=== PATIENT | female | born 1950 | race Caucasian/White ===

== ENCOUNTER → 2019-11-19 | Outpatient (CLI) | payer MEDICARE ==
--- NOTE | 2019-11-19 11:08 | CT ---
EXAMINATION TYPE: CT abdomen pelvis wo/w con DATE OF EXAM: 11/19/2019 HISTORY: Abnormal radiologic findings on imaging. Patient states kidney pain 2-[address] DLP: 1680mGycm Automated Exposure Control for Dose Reduction was Utilized. CONTRAST: CT scan of the abdomen and pelvis is performed without and with IV Contrast, patient injected with 10 0 ml mL of Isovue 300. COMPARISON: None at this institution. FINDINGS: LUNG BASES: Mild scattered linear scarring and/or atelectasis. LIVER/GB: Suspicious heterogeneous hypodense masses throughout the liver. Inferior right hepatic lobe lesion measures 3.9 cm long axis axial image 29. Superior right hepatic dome lesion measures 4.2 cm long axis axial image 15. PANCREAS: No significant abnormality is seen. SPLEEN: No significant abnormality is seen. ADRENALS: No significant abnormality is seen. KIDNEYS: Noncontrast images show no renal calculi bilaterally. Postcontrast images show symmetrical i ntramedullary uptake and excretion without hydronephrosis seen bilaterally. There are simple appearin g parapelvic cyst centrally in the left kidney noted. No concerning solid or cystic renal mass. Bladd er adequately distended without intraluminal mass. BOWEL: Oral contrast reached the level proximal transverse colon. There is small hiatal hernia. There is no suspicious small or large bowel dilatation. There is suspicious severe concentric irregular wa ll thickening involving the right colon just above the ileocecal valve over 6 to 7 cm segment coronal image 34. Lymph nodes extend more centrally throughout the mesentery where there are suspicious tobin opathy. There is abnormal adenopathy in the retroperitoneum for reference 2.5 x 1.8 cm aortocaval lym ph node is measured 43. Abnormal lymph nodes extend from upper to lower abdominal level most prominen t in the retroperitoneum. For reference abnormal left periaortic lymph node seen nearby blood renal v essels on axial image 31. UTERUS/ADNEXA: Anteverted uterus. Scattered adjacent pelvic phlebolith. LYMPH NODES: There are suspicious adjacent enlarged lymph nodes near site of suspected colonic neopla sm right midabdomen axial image 40 measuring 1.2 cm. OSSEOUS STRUCTURES: Grade 1 anterolisthesis L4 on L5. [id number] multilevel spurring in the tho racic spine. Multilevel facet arthropathy mid to lower lumbar spine. OTHER: No significant additional abnormality is seen. IMPRESSION: 1. High-grade right-sided colonic neoplasm with abnormal adjacent adenopathy and intra-abdominal tobin opathy along with hepatic metastatic disease. I attempted to call ordering physician office but could not get anyone at office to answer phone to wisam king case. A Yellow level critical message alert has been initiated for Eladio Hughes MD via the [facility] on 11/19/2019 11:06 AM. This message alert has been sent to Eladio Hughes MD v ia the preferences provided by the clinician for the receipt of Radiology Critical Findings. Message ID [id number].
== END | disposition home or self-care (01) ==
LOC: RADCTMAIN 08:24
PROVIDERS: ATTEND Internal Medicine
DX: C78.7 Secondary malignant neoplasm of liver and intrahepatic bile duct (principal); C18.9 Malignant neoplasm of colon, unspecified
CPT/HCPCS: 82565; 84520; 74178; 36415; Q9967

== ENCOUNTER → 2020-03-16 | Outpatient (CLI) | payer MEDICARE ==
[2020-03-16 11:13] LABS: African American GFR (CKD) >90 (>60 ml/min/1.73 sqM); Blood Urea Nitrogen 9 mg/dL (7-17); Non-African American GFR(CKD) >90 (>60 ml/min/1.73 sqM)
--- NOTE | 2020-03-16 12:51 | CT ---
EXAMINATION TYPE: CT abdomen pelvis w con DATE OF EXAM: 03/16/2020 COMPARISON: HISTORY: colon CA CT DLP: 418.4 mGycm CONTRAST: CT scan of the abdomen and pelvis is performed with Oral Contrast and with IV Contrast, patient injec ander with 100 mL of Isovue 300. FINDINGS: LUNG BASES-: No visible nodule. No infiltrate. LIVER/GB: No calcified gallstones. Multiple cannonball masses are seen throughout all segments of t he liver. The largest mass within the right hepatic lobe measures 5.3 cm and the left hepatic lobe 5. 4 cm. Biliary tree is of normal caliber. PANCREAS: No inflammation. No distinct mass. SPLEEN: No splenic enlargement. No lesion seen. ADRENALS: No nodule. No thickening. KIDNEYS/BLADDER: No hydronephrosis. No nephrolithiasis. No distinct renal mass. Urinary bladder g rossly unremarkable. BOWEL: Right-sided colectomy changes noted. At the colectomy site there is a nodule identified measur ing 2.5 cm and this may reflect local recurrence near the anastomotic site right paracolic gutter reg ion. There is moderate fecal stasis seen throughout the colon. Small bowel is of normal caliber. GENITAL ORGANS: No gross abnormality. LYMPH NODES: There is periportal adenopathy is seen measuring 1.3 cm. Left para-aortic adenopathy is also noted measuring 1.2 cm. Aorto intracaval adenopathy measures 2.5 cm. AORTA: No significant abnormality. OSSEOUS STRUCTURES: No significant abnormality is seen. OTHER: No significant additional abnormality is seen. IMPRESSION: 1. Cannonball metastases throughout the liver. 2. Nodule identified near the anastomotic site right paracolic gutter region may reflect recurrent tu mor. 3. Adenopathy as discussed.
== END | disposition home or self-care (01) ==
LOC: RADPROMAIN 10:14
PROVIDERS: ATTEND Internal Medicine Hematology & Oncology
DX: Z03.89 Encounter for observation for other suspected diseases and conditions ruled out (principal); C78.7 Secondary malignant neoplasm of liver and intrahepatic bile duct; C18.3 Malignant neoplasm of hepatic flexure; R59.9 Enlarged lymph nodes, unspecified; Z88.0 Allergy status to penicillin
CPT/HCPCS: 82565; 84520; 74177; J1642; Q9967

== ENCOUNTER 2020-05-30 17:53 | Inpatient (IN) | payer MEDICARE ==
[2020-05-30] MEDS ORDERED: SODIUM CHLORIDE 0.9% 1,000 ML IV STA (21:03)
[2020-05-30] MEDS ORDERED: HYDROmorphone 0.5 MG/0.5 ML SYRINGE IVP STA (21:03)
[2020-05-30] MEDS ORDERED: diphenhydrAMINE 50 MG/ML 1 ML VIAL IVP STA (21:03)
[2020-05-30] MEDS ORDERED: METOCLOPRAMIDE 5 MG/ML 2 ML VIAL IVP STA (21:03)
--- NOTE | 2020-05-30 21:10 | ED ---
Nausea/Vomiting/Diarrhea HPI - General Chief complaint: Nausea/Vomiting/Diarrhea Stated complaint: vomiting, dehydration Time Seen by Provider: 05/30/20 20:54 Source: patient, family Mode of arrival: wheelchair Limitations: physical limitation - History of Present Illness Initial comments: 69-year-old female patient presents to the emergency department today for evaluation of upper abdominal pain and vomiting. States symptoms have improvement since Saturday. She has been taking Zofran at home without relief. Denies any fever or chills. States she is having normal bowel movements. Denies any diarrhea, hematochezia, or melena. She denies any radiation of the pain through to her back. She is passing gas. States she is unable to keep down any food or fluids. Denies any hematemesis. Patient does have history of colon cancer with mets to the liver, currently receiving chemotherapy. Her last infusion was on Saturday. She generally does not have these symptoms with her chemo infusions. She did have tumor resection from the colon in December 2019. She sees Dr. Damon outpatient. Patient denies any recent rash, cough, shortness of breath, chest pain, back pain, numbness, tingling, dizziness, weakness, hematuria, dysuria, urinary urgency, urinary frequency, headache, visual changes, or any other complaints. - Related Data Home Medications Medication Instructions Recorded Confirmed fentaNYL 75MCG/HR PATCH [Duragesic 75 mcg TRANSDERM Q72H 04/08/20 05/30/20 75MCG/HR] Doxycycline Monohydrate [Monodox] 100 mg PO BID 05/30/20 05/30/20 Hydrocodone/Acetaminophen [[place] 1 tab PO TID PRN 05/30/20 05/30/20 10-325] Hydrocortisone Cream 1 applic TOPICAL HS PRN 05/30/20 05/30/20 [Hydrocortisone 1% Cream] Lidocaine-Prilocaine Cream [Emla 1 applic TOPICAL DAILY PRN 05/30/20 05/30/20 Cream 2.5%/2.5%] Ondansetron Odt [Zofran Odt] 8 mg PO TID PRN 05/30/20 05/30/20 Pantoprazole [Protonix] 40 mg PO DAILY PRN 05/30/20 05/30/20 Venlafaxine HCl ER [Effexor Xr] 37.5 mg PO DAILY 05/30/20 05/30/20 Allergies Allergy/AdvReac Type Severity Reaction Status Date / Time Penicillins Allergy Rash/Hives Verified 05/30/20 22:56 Review of Systems ROS Statement: Those systems with pertinent positive or pertinent negative responses have been documented in the HPI. ROS Other: All systems not noted in ROS Statement are negative. Past Medical History Past Medical History: Cancer Additional Past Medical History / Comment(s): DIAGNOSED WITH STAGE 4 COLON CANCER WITH LARGE TUMOR ON LIVER History of Any Multi-Drug Resistant Organisms: None Reported Past Surgical History: Cholecystectomy, Tonsillectomy, Tubal Ligation Past Psychological History: No Psychological Hx Reported Smoking Status: Never smoker Past Alcohol Use History: None Reported Past Drug Use History: None Reported - Past Family History Father Family Medical History: COPD General Exam Limitations: physical limitation General appearance: alert, in no apparent distress, other (This is a well- developed, well-nourished adult female patient in no acute distress. Vital signs upon presentation are temperature 98.4F, pulse 76, respirations 18, blood pressure 128/83, pulse ox 99% on room air.) Eye exam: Present: normal appearance, PERRL, EOMI. Absent: scleral icterus, conjunctival injection, periorbital swelling ENT exam: Present: normal exam, normal oropharynx, mucous membranes moist Respiratory exam: Present: normal lung sounds bilaterally. Absent: respiratory distress, wheezes, rales, rhonchi, stridor Cardiovascular Exam: Present: regular rate, normal rhythm, normal heart sounds. Absent: systolic murmur, diastolic murmur, rubs, gallop, clicks GI/Abdominal exam: Present: soft, tenderness (Upper abdominal tenderness), normal bowel sounds. Absent: distended, guarding, rebound, rigid Neurological exam: Present: alert, oriented X3, CN II-XII intact Psychiatric exam: Present: normal affect, normal mood Skin exam: Present: warm, dry, intact, normal color. Absent: rash Course Vital Signs 05/30/20 05/30/20 05/30/20 18:21 22:36 22:40 Temperature 98.4 F 98 F Pulse Rate 76 87 Respiratory 18 Rate Blood Pressure 128/83 178/111 O2 Sat by Pulse 99 100 Oximetry 05/30/20 05/31/20 23:00 00:00 Temperature Pulse Rate 81 82 Respiratory 18 16 Rate Blood Pressure 169/97 164/96 O2 Sat by Pulse 98 Oximetry Medical Decision Making - Medical Decision Making 61-year-old female patient presents to the emergency department today for evaluation of severe abdominal pain and vomiting. Patient has been vomiting and experiencing pain since Saturday. Patient is currently being treated for colon cancer with metastasis to the liver. She did receive her last chemo treatment on Saturday. Patient states she has been vomiting since Saturday but this is not usual symptoms she gets after her treatments. Physical examination did reveal exquisite of upper abdominal tenderness. Labs reviewed and did reveal normal white blood cell count, hypomagnesemia with a count of 0.6. CT abdomen and pelvis was obtained and showed evidence for tumor near the colon which is an large compared to last exam. Metastases to the liver are of similar sizes her previous exam. I did discuss findings and results with the patient. We'll admit for pain management nausea management. She will have her magnesium replaced. We'll consult oncology. She is agreeable with this plan. - Lab Data Result diagrams: 05/30/20 21:30 05/30/20 21:30 Lab Results 05/30/20 05/30/20 05/30/20 Range/Units 21:30 21:30 21:30 WBC 10.5 (3.8-10.6) k/uL RBC 4.05 (3.80-5.40) m/uL Hgb 12.5 (11.4-16.0) gm/dL Hct 39.8 (34.0-46.0) % MCV 98.3 (80.0-100.0) fL MCH 30.8 (25.0-35.0) pg MCHC 31.3 (31.0-37.0) g/dL RDW 12.4 (11.5-15.5) % Plt Count 326 (150-450) k/uL Neutrophils % 72 % Lymphocytes % 19 % Monocytes % 7 % Eosinophils % 1 % Basophils % 0 % Neutrophils # 7.6 (1.3-7.7) k/uL Lymphocytes # 2.0 (1.0-4.8) k/uL Monocytes # 0.7 (0-1.0) k/uL Eosinophils # 0.1 (0-0.7) k/uL Basophils # 0.0 (0-0.2) k/uL Sodium 139 (137-145) mmol/L Potassium 4.0 (3.5-5.1) mmol/L Chloride 102 (98-107) mmol/L Carbon Dioxide 24 (22-30) mmol/L Anion Gap 13 mmol/L BUN 11 (7-17) mg/dL Creatinine 0.53 (0.52-1.04) mg/dL Est GFR (CKD-EPI)AfAm >90 (>60 ml/min/1.73 sqM) Est GFR (CKD-EPI)NonAf >90 (>60 ml/min/1.73 sqM) Glucose 78 (74-99) mg/dL Plasma Lactic Acid Rommel 1.8 (0.7-2.0) mmol/L Calcium 7.0 L (8.4-10.2) mg/dL Magnesium 0.6 L* (1.6-2.3) mg/dL Total Bilirubin 0.9 (0.2-1.3) mg/dL AST 38 H (14-36) U/L ALT 10 (4-34) U/L Alkaline Phosphatase 292 H (38-126) U/L Troponin I (0.000-0.034) ng/mL Total Protein 7.1 (6.3-8.2) g/dL Albumin 3.8 (3.5-5.0) g/dL Lipase 24 (23-300) U/L 05/30/20 Range/Units 21:30 WBC (3.8-10.6) k/uL RBC (3.80-5.40) m/uL Hgb (11.4-16.0) gm/dL Hct (34.0-46.0) % MCV (80.0-100.0) fL MCH (25.0-35.0) pg MCHC (31.0-37.0) g/dL RDW (11.5-15.5) % Plt Count (150-450) k/uL Neutrophils % % Lymphocytes % % Monocytes % % Eosinophils % % Basophils % % Neutrophils # (1.3-7.7) k/uL Lymphocytes # (1.0-4.8) k/uL Monocytes # (0-1.0) k/uL Eosinophils # (0-0.7) k/uL Basophils # (0-0.2) k/uL Sodium (137-145) mmol/L Potassium (3.5-5.1) mmol/L Chloride (98-107) mmol/L Carbon Dioxide (22-30) mmol/L Anion Gap mmol/L BUN (7-17) mg/dL Creatinine (0.52-1.04) mg/dL Est GFR (CKD-EPI)AfAm (>60 ml/min/1.73 sqM) Est GFR (CKD-EPI)NonAf (>60 ml/min/1.73 sqM) Glucose (74-99) mg/dL Plasma Lactic Acid Rommel (0.7-2.0) mmol/L Calcium (8.4-10.2) mg/dL Magnesium (1.6-2.3) mg/dL Total Bilirubin (0.2-1.3) mg/dL AST (14-36) U/L ALT (4-34) U/L Alkaline Phosphatase (38-126) U/L Troponin I <0.012 (0.000-0.034) ng/mL Total Protein (6.3-8.2) g/dL Albumin (3.5-5.0) g/dL Lipase (23-300) U/L - EKG Data -: EKG Interpreted by Oh EKG Comments: EKG obtained at 2147 shows normal sinus rhythm with a ventricular rate is 73, NJ interval 128, QRS duration 78, QT 406, QTc 447. No evidence of ST elevation or depression. - Radiology Data Radiology results: report reviewed, image reviewed CT abdomen and pelvis with contrast was obtained. Report is reviewed in its entirety. Impression by Dr. Deutsch shows compared to last exam there is enlargement of low density mass to the right lower abdomen that could relate to recurrent tumor progression of tumor. There is retroperitoneal lymphadenopathy increased compared to old exam. Multiple hepatic metastatic foci not increased in size compared to old exam. No evidence of bowel obstruction. There is a new small amount of free fluid in the pelvis compared to old exam. Disposition Clinical Impression: Abdominal pain, Vomiting, Hypomagnesemia Disposition: ADMITTED IP TO THIS [facility] Condition: Serious Decision to Admit Reason: Admit from EC Decision Date: 05/30/20 Decision Time: 23:36
[2020-05-30 21:56] LABS: Basophils % (A) 0 %; Eosinophils # (A) 0.1 k/uL (0-0.7); Eosinophils % (A) 1 %; HCT 39.8 % (34.0-46.0); HGB 12.5 gm/dL (11.4-16.0); Lymphocytes % (A) 19 %; MCH 30.8 pg (25.0-35.0); MCHC 31.3 g/dL (31.0-37.0); MCV 98.3 fL (80.0-100.0); Mean Platelet Volume 7.6; Monocytes # (A) 0.7 k/uL (0-1.0); Monocytes % (A) 7 %; Neutrophils # (A) 7.6 k/uL (1.3-7.7); Neutrophils % (A) 72 %; Platelet Count 326 k/uL (150-450); RBC 4.05 m/uL (3.80-5.40); RDW 12.4 % (11.5-15.5); WBC 10.5 k/uL (3.8-10.6)
[2020-05-30 22:12] LABS: ALT 10 U/L (4-34); AST 38 U/L (14-36); African American GFR (CKD) >90 (>60 ml/min/1.73 sqM); Albumin 3.8 g/dL (3.5-5.0); Alkaline Phosphatase 292 U/L (38-126); Anion Gap 13 mmol/L; Blood Urea Nitrogen 11 mg/dL (7-17); Carbon Dioxide 24 mmol/L (22-30); Chloride 102 mmol/L (98-107); Glucose 78 mg/dL (74-99); Non-African American GFR(CKD) >90 (>60 ml/min/1.73 sqM); Sodium 139 mmol/L (137-145); Total Bilirubin 0.9 mg/dL (0.2-1.3); Total Protein 7.1 g/dL (6.3-8.2)
[2020-05-30 22:25] LABS: Magnesium 0.6 mg/dL (1.6-2.3)
[2020-05-30] MEDS ORDERED: Magnesium Replacement Protocol 1 EACH MISC MISCELLANE PRN (22:26)
[2020-05-30] MEDS: MAGNESIUM SULFATE-D5W PMX 1 GM in DEXTROSE/WATER 1 100ML.BAG IVPB SCH ×2 (22:39→23:41)
--- NOTE | 2020-05-30 22:54 | CT ---
EXAMINATION TYPE: CT abdomen pelvis w con DATE OF EXAM: 05/30/2020 COMPARISON:. 03/16/2020 HISTORY: abdominal pain, vomiting CT DLP: 573.7 mGycm Automated exposure control for dose reduction was used. CONTRAST: Performed with IV Contrast, patient injected with 100 mL of Isovue 300. Multiple axial sections were obtained from the diaphragm to the floor the pelvis with IV contrast. Lung bases are clear of consolidation. There is no pleural effusion. There is no pericardial effusion . Spleen appears normal. There is no evidence of pancreatic mass. There are numerous masses throughou t the liver that measure up to 6 cm consistent with metastatic disease. These have mixed density. The bile ducts are not dilated. Gallbladder appears absent. There is no adrenal mass. Kidneys show satisfactory contrast opacification. There is no hydronephrosi s. Ureters are not dilated. Bladder distends smoothly. There is no inguinal hernia. There is small am ount of fluid in the cul-de-sac. Uterus is anteverted. There is no evidence of a pelvic mass. There a re multiple enlarged retroperitoneal abdominal Lymph nodes that measure up to 2 cm. There is no bowel obstruction. There is surgery at the right colon. There is 4 cm rounded mass with c entral fluid density in the right lower quadrant posterior to the right colon. Mass is increased sign ificantly compared to previous CT scan. Previous exam measures 2.5 cm. This does not appear to be foc al dilated small bowel. There is no free air. There is a first-degree L4-5 spondylolisthesis. There i s no lumbar compression fracture. Bony pelvis appears intact. IMPRESSION: Compared to last exam there is enlargement of low density mass in the right lower abdomen that could relate to recurrent tumor or progression of tumor. There is retroperitoneal lymphadenopathy increased compared to old exam. Multiple hepatic metastatic foci not increased in size compared to old exam. No evidence of a bowel obstruction. There is a new small amount of free fluid in the pelvis compared to old exam.
[2020-05-30] MEDS ORDERED: ACETAMINOPHEN TAB 325 MG TAB PO PRN (23:37)
[2020-05-30] MEDS ORDERED: ONDANSETRON 4 MG/2 ML VIAL IVP PRN (23:37)
[2020-05-30] MEDS ORDERED: NALOXONE 0.4 MG/ML 1 ML VIAL IV PRN (23:37)
[2020-05-30] MEDS ORDERED: SODIUM CHLORIDE 0.9% 1,000 ML IV SCH (23:45)
[2020-05-31] MEDS: MAGNESIUM SULFATE-D5W PMX 1 GM in DEXTROSE/WATER 1 100ML.BAG IVPB SCH ×4 (00:56→12:39)
[2020-05-31] MEDS: HYDROmorphone 0.5 MG/0.5 ML SYRINGE IVP PRN ×4 (04:39→21:00)
[2020-05-31 05:16] LABS: Appearance,Urine Clear (Clear); Bilirubin,Urine Negative (Negative); Blood,Urine Small (Negative); Color,Urine Yellow; Glucose,Urine (UA) Negative (Negative); Ketones,Urine 2+ (Negative); Leukocyte Esterase,Urine Negative (Negative); Nitrite,Urine Negative (Negative); PH, Urine 6.5 (5.0-8.0); Protein,Urine Negative (Negative); RBC,Urine 16 /hpf (0-5); Specific Gravity,Urine 1.029 (1.001-1.035); Urobilinogen,Urine <2.0 mg/dL (<2.0); WBC,Urine 2 /hpf (0-5)
[2020-05-31 06:53] LABS: ALT 9 U/L (4-34); AST 36 U/L (14-36); African American GFR (CKD) >90 (>60 ml/min/1.73 sqM); Albumin 3.1 g/dL (3.5-5.0); Alkaline Phosphatase 256 U/L (38-126); Anion Gap 10 mmol/L; Blood Urea Nitrogen 8 mg/dL (7-17); Carbon Dioxide 26 mmol/L (22-30); Chloride 105 mmol/L (98-107); Glucose 76 mg/dL (74-99); Magnesium 1.5 mg/dL (1.6-2.3); Non-African American GFR(CKD) >90 (>60 ml/min/1.73 sqM); Potassium 3.4 mmol/L (3.5-5.1); Sodium 141 mmol/L (137-145); Total Bilirubin 0.8 mg/dL (0.2-1.3); Total Protein 6.2 g/dL (6.3-8.2)
[2020-05-31 07:06] LABS: Calcium 6.4 mg/dL (8.4-10.2)
[2020-05-31] MEDS ORDERED: HYDROcodone/APAP 10-325MG 1 EACH TAB PO PRN (09:55)
[2020-05-31] MEDS ORDERED: PANTOPRAZOLE 40 MG TABLET PO PRN (09:55)
[2020-05-31] MEDS ORDERED: HYDROCORTISONE 1% CREAM 30 GM TUBE TOPICAL PRN (09:55)
[2020-05-31] MEDS ORDERED: LIDOCAINE-PRILOCAINE 2.5-2.5% CREAM 5 GM TUBE TOPICAL PRN (09:55)
[2020-05-31] MEDS: VENLAFAXINE HCL ER 37.5 MG CAP PO SCH (11:18)
[2020-05-31] MEDS: DEXTROSE 5%-0.45% NACL 1,000 ML IV SCH ×2 (12:50→20:58)
--- NOTE | 2020-05-31 22:28 | P.HPIM ---
History of Present Illness H&P Date: 05/31/20 Chief Complaint: Abdominal pain History of presenting complaint: This is a pleasant [address] Eladio finnegan. Also follows with oncologist Dr. Damon. Patient was diagnosed with stage IV colon cancer in November 2019 with liver metastasis. Patient's been on chemotherapy. Last chemotherapy works about 5 days ago. Patient's had chronic abdominal pain rather constant for which she is on a Duragesic patch. For 5 days patient started having more nausea vomiting. No fever no chills. Last bowel movement was 2 days ago. Otherwise patient abdominal pain has been rather significantly constant for the last few months. Other stable medical conditions include depression, GERD. Patient appetite has been low. Review of systems: GEN.: Tired EYES: None HEENT: None NECK: None RESPIRATORY: None CARDIOVASCULAR: None GASTROINTESTINAL: As above GENITOURINARY: None MUSCULOSKELETAL: None LYMPHATICS: None HEMATOLOGICAL: None PSYCHIATRY: Bit depressed NEUROLOGICAL: None Past medical history to include: Stage IV colon cancer metastatic to the liver, hiatal hernia, iron deficiency anemia, chronic low back pain, GERD, depression Social history: No history of smoking or alcohol. Lives with her daughter. Physical examination: VITAL SIGNS: 98.1, 73, 18, 149/93, 98% on room air GENERAL: BMI 20.7, sitting on bed, somewhat uncomfortable. EYES: Pupils equal. Conjunctiva normal. HEENT: External appearance of nose and ears normal, oral cavity grossly normal. NECK: JVD not raised; masses not palpable. HEART: First and second heart sounds are normal; no edema. LUNGS: Respiratory rate normal; clear to auscultation. ABDOMEN: Soft, diffuse tenderness, no guarding or rigidity liver spleen not palpable, no masses palpable. PSYCH: [Alert and oriented x3; mood and affect anxious l. NEUROLOGICAL: Cranial nerves grossly intact; no facial asymmetry, power and sensation grossly intact. LYMPHATICS: No lymph nodes palpable in the axilla and neck INVESTIGATIONS, reviewed in the clinical context: White count 10.5 hemoglobin 12.5 platelets 326 potassium 4 creatinine 0.53 Magnesium 0.6 alkaline phosphatase 292 albumin 3.1 COVID 19 PCR-not detected Computed tomography scan of the abdomen and pelvis-multiple enlarged retroperitoneal lymph nodes mass in the right lower quadrant increased from last computed tomography scan, multiple hepatic metastasis Assessment: -This is a patient is had trouble significant chronic pain for last 6 months. The pain has not increased much. Now that is new associated nausea vomiting. Most likely secondary to chemotherapy there was had about 6 days ago. -Clinical dehydration -Colon cancer stage IV with metastatic disease to liver -GERD -Hiatal hernia -Depression otherwise specified -Mild protein calorie malnutrition decreased oral intake Severe hypomagnesemia Plan: Patient is most likely symptoms of from chemotherapy. Given Zofran. Started on IV fluids. Oncology was consulted. Patient abdomen does not appear to be surgical. Will get a surgical opinion. Care was discussed with the patient. Replace electrolytes Past Medical History Past Medical History: Cancer Additional Past Medical History / Comment(s): DIAGNOSED WITH STAGE 4 COLON CANCER WITH LARGE TUMOR ON LIVER History of Any Multi-Drug Resistant Organisms: None Reported Past Surgical History: Cholecystectomy, Tonsillectomy, Tubal Ligation Past Psychological History: No Psychological Hx Reported Smoking Status: Never smoker Past Alcohol Use History: None Reported Past Drug Use History: None Reported - Past Family History Father Family Medical History: COPD Mother Family Medical History: Dementia Additional Family Medical History / Comment(s): Mother of alzheimer's at the age of 95 yrs. Medications and Allergies Home Medications Medication Instructions Recorded Confirmed Type fentaNYL 75MCG/HR PATCH [Duragesic 75 mcg TRANSDERM Q72H 04/08/20 05/30/20 History 75MCG/HR] Doxycycline Monohydrate [Monodox] 100 mg PO BID 05/30/20 05/30/20 History Hydrocodone/Acetaminophen [[place] 1 tab PO TID PRN 05/30/20 05/30/20 History 10-325] Hydrocortisone Cream 1 applic TOPICAL HS PRN 05/30/20 05/30/20 History [Hydrocortisone 1% Cream] Lidocaine-Prilocaine Cream [Emla 1 applic TOPICAL DAILY PRN 05/30/20 05/30/20 History Cream 2.5%/2.5%] Ondansetron Odt [Zofran Odt] 8 mg PO TID PRN 05/30/20 05/30/20 History Pantoprazole [Protonix] 40 mg PO DAILY PRN 05/30/20 05/30/20 History Venlafaxine HCl ER [Effexor Xr] 37.5 mg PO DAILY 05/30/20 05/30/20 History Allergies Allergy/AdvReac Type Severity Reaction Status Date / Time Penicillins Allergy Rash/Hives Verified 05/30/20 22:56 Physical Exam Vitals: Vital Signs Temp Pulse Resp BP Pulse Ox 05/31/20 08:16 98.1 F 73 18 149/93 98 05/31/20 06:00 82 16 156/94 95 05/31/20 01:00 82 16 153/89 05/31/20 00:00 82 16 164/96 05/30/20 23:00 81 18 169/97 98 05/30/20 22:40 178/111 05/30/20 22:36 98 F 87 100 05/30/20 18:21 98.4 F 76 18 128/83 99 Intake and Output 05/30/20 05/31/20 05/31/20 22:59 06:59 14:59 Other: Voiding Method Toilet Weight 51.256 kg Results CBC & Chem 7: 05/30/20 21:30 05/31/20 05:28 Labs: Abnormal Lab Results - Last 24 Hours (Table) 05/30/20 05/31/20 05/31/20 Range/Units 21:30 04:32 05:28 Potassium 3.4 L (3.5-5.1) mmol/L Calcium 7.0 L 6.4 L* (8.4-10.2) mg/dL Magnesium 0.6 L* 1.5 L (1.6-2.3) mg/dL AST 38 H (14-36) U/L Alkaline Phosphatase 292 H 256 H (38-126) U/L Total Protein 6.2 L (6.3-8.2) g/dL Albumin 3.1 L (3.5-5.0) g/dL Urine Ketones 2+ H (Negative) Urine Blood Small H (Negative) Urine RBC 16 H (0-5) /hpf
[2020-05-31] MEDS ORDERED: SCOPOLAMINE 1.5MG/72HR PATCH TRANSDERM SCH (22:30)
[2020-06-01] MEDS: DEXTROSE 5%-0.45% NACL 1,000 ML IV SCH ×3 (05:37→21:45)
[2020-06-01 08:19] LABS: ALT 8 U/L (4-34); AST 34 U/L (14-36); African American GFR (CKD) >90 (>60 ml/min/1.73 sqM); Albumin 2.7 g/dL (3.5-5.0); Alkaline Phosphatase 238 U/L (38-126); Anion Gap 7 mmol/L; Blood Urea Nitrogen 3 mg/dL (7-17); Calcium 6.7 mg/dL (8.4-10.2); Carbon Dioxide 25 mmol/L (22-30); Chloride 106 mmol/L (98-107); Glucose 110 mg/dL (74-99); Non-African American GFR(CKD) >90 (>60 ml/min/1.73 sqM); Potassium 3.4 mmol/L (3.5-5.1); Sodium 138 mmol/L (137-145); Total Bilirubin 0.8 mg/dL (0.2-1.3); Total Protein 5.6 g/dL (6.3-8.2)
[2020-06-01 08:30] LABS: Magnesium 0.7 mg/dL (1.6-2.3)
[2020-06-01] MEDS: VENLAFAXINE HCL ER 37.5 MG CAP PO SCH (08:38)
[2020-06-01] MEDS: HYDROmorphone 0.5 MG/0.5 ML SYRINGE IVP PRN ×2 (08:41→14:41)
--- NOTE | 2020-06-01 09:21 | P.GSCN ---
History of Present Illness Consult date: 06/01/20 Reason for Consult: Abdominal pain, metastatic colon cancer History of present illness: This a 69-year-old female who was admitted to hospital with abdominal pain. Patient's history of metastatic colon cancer with liver metastases. Past Medical History Past Medical History: Cancer Additional Past Medical History / Comment(s): DIAGNOSED WITH STAGE 4 COLON CANCER WITH LARGE TUMOR ON LIVER History of Any Multi-Drug Resistant Organisms: None Reported Past Surgical History: Cholecystectomy, Tonsillectomy, Tubal Ligation Additional Past Surgical History / Comment(s): Colonoscopy Past Anesthesia/Blood Transfusion Reactions: No Reported Reaction Past Psychological History: No Psychological Hx Reported Smoking Status: Never smoker Past Alcohol Use History: None Reported Past Drug Use History: None Reported - Past Family History Father Family Medical History: COPD Mother Family Medical History: Dementia Additional Family Medical History / Comment(s): Mother of alzheimer's at the age of 95 yrs. Medications and Allergies Home Medications Medication Instructions Recorded Confirmed Type fentaNYL 75MCG/HR PATCH [Duragesic 75 mcg TRANSDERM Q72H 04/08/20 05/30/20 History 75MCG/HR] Doxycycline Monohydrate [Monodox] 100 mg PO BID 05/30/20 05/30/20 History Hydrocodone/Acetaminophen [[place] 1 tab PO TID PRN 05/30/20 05/30/20 History 10-325] Hydrocortisone Cream 1 applic TOPICAL HS PRN 05/30/20 05/30/20 History [Hydrocortisone 1% Cream] Lidocaine-Prilocaine Cream [Emla 1 applic TOPICAL DAILY PRN 05/30/20 05/30/20 History Cream 2.5%/2.5%] Ondansetron Odt [Zofran Odt] 8 mg PO TID PRN 05/30/20 05/30/20 History Pantoprazole [Protonix] 40 mg PO DAILY PRN 05/30/20 05/30/20 History Venlafaxine HCl ER [Effexor Xr] 37.5 mg PO DAILY 05/30/20 05/30/20 History Allergies Allergy/AdvReac Type Severity Reaction Status Date / Time Penicillins Allergy Rash/Hives Verified 05/30/20 22:56 Surgical - Exam Vital Signs Temp Pulse Resp BP Pulse Ox 98.4 F 76 18 128/83 99 05/30/20 18:21 05/30/20 18:21 05/30/20 18:21 05/30/20 18:21 05/30/20 18:21 - General chronically ill - Eyes PERRL - ENT normal pinna - Neck no masses - Respiratory normal expansion - Cardiovascular Rhythm: regular - Abdomen Mild diffuse tenderness Abdomen: soft Results - Labs 05/30/20 21:30 06/01/20 07:11 Abnormal Lab Results - Last 24 Hours (Table) 06/01/20 Range/Units 07:11 Potassium 3.4 L (3.5-5.1) mmol/L BUN 3 L (7-17) mg/dL Creatinine 0.40 L (0.52-1.04) mg/dL Glucose 110 H (74-99) mg/dL Calcium 6.7 L (8.4-10.2) mg/dL Magnesium 0.7 L* (1.6-2.3) mg/dL Alkaline Phosphatase 238 H (38-126) U/L Total Protein 5.6 L (6.3-8.2) g/dL Albumin 2.7 L (3.5-5.0) g/dL Microbiology - Last 24 Hours (Table) 05/30/20 21:30 Blood Culture - Preliminary Blood No Growth after 24 hours Diabetes panel 06/01/20 Range/Units 07:11 Sodium 138 (137-145) mmol/L Potassium 3.4 L (3.5-5.1) mmol/L Chloride 106 (98-107) mmol/L Carbon Dioxide 25 (22-30) mmol/L BUN 3 L (7-17) mg/dL Creatinine 0.40 L (0.52-1.04) mg/dL Glucose 110 H (74-99) mg/dL Calcium 6.7 L (8.4-10.2) mg/dL AST 34 (14-36) U/L ALT 8 (4-34) U/L Alkaline Phosphatase 238 H (38-126) U/L Total Protein 5.6 L (6.3-8.2) g/dL Albumin 2.7 L (3.5-5.0) g/dL Calcium panel 06/01/20 Range/Units 07:11 Calcium 6.7 L (8.4-10.2) mg/dL Albumin 2.7 L (3.5-5.0) g/dL Pituitary panel 06/01/20 Range/Units 07:11 Sodium 138 (137-145) mmol/L Potassium 3.4 L (3.5-5.1) mmol/L Chloride 106 (98-107) mmol/L Carbon Dioxide 25 (22-30) mmol/L BUN 3 L (7-17) mg/dL Creatinine 0.40 L (0.52-1.04) mg/dL Glucose 110 H (74-99) mg/dL Calcium 6.7 L (8.4-10.2) mg/dL Adrenal panel 06/01/20 Range/Units 07:11 Sodium 138 (137-145) mmol/L Potassium 3.4 L (3.5-5.1) mmol/L Chloride 106 (98-107) mmol/L Carbon Dioxide 25 (22-30) mmol/L BUN 3 L (7-17) mg/dL Creatinine 0.40 L (0.52-1.04) mg/dL Glucose 110 H (74-99) mg/dL Calcium 6.7 L (8.4-10.2) mg/dL Total Bilirubin 0.8 (0.2-1.3) mg/dL AST 34 (14-36) U/L ALT 8 (4-34) U/L Alkaline Phosphatase 238 H (38-126) U/L Total Protein 5.6 L (6.3-8.2) g/dL Albumin 2.7 L (3.5-5.0) g/dL - Imaging CT scan - abdomen: report reviewed (Multiple hepatic metastases evidence of retroperitoneal the testes) Assessment and Plan Plan: Metastatic colon cancer Abdominal pain Patient's pain is most likely due to her metastatic disease. No surgical intervention is planned. Oncology is to see the patient.
[2020-06-01 09:32] VITALS: BMI 20.6
[2020-06-01] MEDS: MAGNESIUM SULFATE-D5W PMX 1 GM in DEXTROSE/WATER 1 100ML.BAG IVPB SCH ×4 (09:45→13:31)
[2020-06-01] MEDS: NYSTATIN 100,000 UNIT/ML SUSP 500,000 UNIT/5 ML CUP PO SCH ×3 (11:14→21:37)
--- NOTE | 2020-06-01 15:34 | P.CONS ---
History of Present Illness - Reason for Consult Consult date: 06/01/20 Colon adenocarcinoma Requesting physician: Yamila Duncan - Chief Complaint intractable V, abd pain - History of Present Illness Ms. Nuno is a very pleasant female pt of Dr. Damon who presented to her PCP Dr. Hughes in early 2018 with c/o R flank pain, treated for suspected UTI, she had no relief but, failed to return to PCP. Symptoms progressed to in clude pain in R abdomen & RUQ, lost 30 LBS, tolerated liquids only. Dr. Hughes ordered CT AP, large mass in R colon hepatic flexture, intra-abdominal lymphadenopathy and multiple hepatic masses. She was referred to Dr. Jensen, had Colonoscopy 11/27/19 revealed nearly obstructing mass in hepatic flexure, path positive for poorly-differentiated adenocarcinoma. 01/01/20 had resection of primary tumor 12/15/19, surgical path showed 14/14 LN positive, liver Bx + for metastatic colon. She was started on palliative FOLFOX/avastin. 03/[address] after 4 cycles of FOLFOX/Avastin showed progressed liver mets. She started Vectibix, is s/p 5 cycles, last dose was last week. She presents to the hospital with c/o vomiting that started 2 days after treatment, persistent, abd pain has increased and is radiating through to her back, her pain meds were not longer adequate, he has epigastric discomfort, little to no oral intake. Denied fever, oral irritation, chest pain, cough, dysuria, hematuria, she had 1 episode of diarrhea, none since, no swelling. She is tired of feeling terrible, she is frustrated with treatment. Review of Systems 14 point ROS is negative except as stated in HPI Past Medical History Past Medical History: Cancer Additional Past Medical History / Comment(s): DIAGNOSED WITH STAGE 4 COLON CANCER WITH LARGE TUMOR ON LIVER History of Any Multi-Drug Resistant Organisms: None Reported Past Surgical History: Cholecystectomy, Tonsillectomy, Tubal Ligation Additional Past Surgical History / Comment(s): Colonoscopy Past Anesthesia/Blood Transfusion Reactions: No Reported Reaction Past Psychological History: No Psychological Hx Reported Smoking Status: Never smoker Past Alcohol Use History: None Reported Past Drug Use History: None Reported - Past Family History Father Family Medical History: COPD Mother Family Medical History: Dementia Additional Family Medical History / Comment(s): Mother of alzheimer's at the age of 95 yrs. Medications and Allergies Home Medications Medication Instructions Recorded Confirmed Type fentaNYL 75MCG/HR PATCH [Duragesic 75 mcg TRANSDERM Q72H 04/08/20 05/30/20 H istory 75MCG/HR] Doxycycline Monohydrate [Monodox] 100 mg PO BID 05/30/20 05/30/20 History Hydrocodone/Acetaminophen [[place] 1 tab PO TID PRN 05/30/20 05/30/20 History 10-325] Hydrocortisone Cream 1 applic TOPICAL HS PRN 05/30/20 05/30/20 History [Hydrocortisone 1% Cream] Lidocaine-Prilocaine Cream [Emla 1 applic TOPICAL DAILY PRN 05/30/20 05/30/20 History Cream 2.5%/2.5%] Ondansetron Odt [Zofran Odt] 8 mg PO TID PRN 05/30/20 05/30/20 History Pantoprazole [Protonix] 40 mg PO DAILY PRN 05/30/20 05/30/20 History Venlafaxine HCl ER [Effexor Xr] 37.5 mg PO DAILY 05/30/20 05/30/20 History Allergies Allergy/AdvReac Type Severity Reaction Status Date / Time Penicillins Allergy Rash/Hives Verified 05/30/20 22:56 Physical Exam Vitals: Vital Signs Temp Pulse Resp BP Pulse Ox 06/01/20 05:00 98.7 F 73 14 134/80 97 05/31/20 21:15 98.1 F 81 13 135/81 97 05/31/20 14:40 99.1 F 76 15 160/90 99 05/31/20 13:31 98.2 F 72 14 142/82 98 Intake and Output 05/31/20 06/01/20 06/01/20 22:59 06:59 14:59 Intake Total 800 1590 Balance 800 1590 Intake: Intake, IV Titration 500 1000 Amount Dextrose 5%-0.45% NaCl 1, 500 1000 000 ml @ 125 mls/hr IV . Q8H [facility] Rx#:[id number] Oral 300 590 Other: Voiding Method Toilet Toilet # Voids 2 2 Weight 51.256 kg - Constitutional General appearance: cooperative, no acute distress, thin - EENT Eyes: anicteric sclerae, EOMI ENT: hearing grossly normal, thrush - Neck Neck: no lymphadenopathy - Respiratory Respiratory: bilateral: CTA - Cardiovascular Rhythm: regular Heart sounds: normal: S1, S2 Abnormal Heart Sounds: no systolic murmur, no diastolic murmur, no rub, no S3 Gallop, no S4 Gallop, no click, no other leg Peripheral Edema: bilateral: None - Gastrointestinal General gastrointestinal: decreased bowel sounds, soft, tenderness - Integumentary Mild skin toxicities r/t EGFR immunotherapy - Neurologic Neurologic: CNII-XII intact - Musculoskeletal Musculoskeletal: strength equal bilaterally - Psychiatric Psychiatric: A&O x's 3, appropriate affect, intact judgment & insight Results CBC & Chem 7: 05/30/20 21:30 06/01/20 07:11 Labs: Abnormal Lab Results - Last 24 Hours (Table) 06/01/20 Range/Units 07:11 Potassium 3.4 L (3.5-5.1) mmol/L BUN 3 L (7-17) mg/dL Creatinine 0.40 L (0.52-1.04) mg/dL Glucose 110 H (74-99) mg/dL Calcium 6.7 L (8.4-10.2) mg/dL Magnesium 0.7 L* (1.6-2.3) mg/dL Alkaline Phosphatase 238 H (38-126) U/L Total Protein 5.6 L (6.3-8.2) g/dL Albumin 2.7 L (3.5-5.0) g/dL Microbiology - Last 24 Hours (Table) 05/30/20 21:30 Blood Culture - Preliminary Blood No Growth after [address] scan - abdomen: report reviewed CT scan - pelvis: report reviewed Assessment and Plan (1) Colon adenocarcinoma Narrative/Plan: CT reviewed. Evidence of progressive disease on current treatment. Reviewed with pt. Prognosis and treatment options that are yet available were discussed including SE, average duration of disease response to treatment and average life expectancy. Pt will let us know how she would like to proceed. Current Visit: Yes Status: Chronic Priority: High Code(s): C18.9 - MALIGNANT NEOPLASM OF COLON, UNSPECIFIED SNOMED Code(s): 070171769 (2) Abdominal pain Narrative/Plan: Most likely r/t progressive disease. Cont to modify analgesic regimen to pt comfort Current Visit: Yes Status: Acute Priority: High Code(s): R10.9 - UNSPECIFIED ABDOMINAL PAIN SNOMED Code(s): 78262905 (3) Hypomagnesemia Narrative/Plan: Likely secondary to vectibix. Replacement protocol Current Visit: Yes Status: Acute Priority: High Code(s): E83.42 - HYPOMAGNESEMIA SNOMED Code(s): 909436453 (4) Vomiting Narrative/Plan: Pt stated antiemetics are helping. Cont Current Visit: Yes Status: Acute Priority: High Code(s): R11.10 - VOMITING, UNSPECIFIED SNOMED Code(s): 456037007 Plan: attests: I performed H&P and developed impression and plan of care for pt, discussed with dictator. I agree with dictated note, documented as a scribe.
--- NOTE | 2020-06-01 20:07 | P.PN ---
Progress Note - Text Progress Note Date: 06/01/20 Chief Complaint: Abdominal pain History of presenting complaint: This is a pleasant [address] Eladio finnegan. Also follows with oncologist Dr. Damon. Patient was diagnosed with stage IV colon cancer in November 2019 with liver metastasis. Patient's been on chemotherapy. Last chemotherapy works about 5 days ago. Patient's had chronic abdominal pain rather constant for which she is on a Duragesic patch. For 5 days patient started having more nausea vomiting. No fever no chills. Last bowel movement was 2 days ago. Otherwise patient abdominal pain has been rather significantly constant for the last few months. Other stable medical conditions include depression, GERD. Patient appetite has been low. Today-feeling a bit better. Continues with abdominal pain. Eating about 50%. Review of systems: Was done for constitutional, cardiovascular, GI, pulmonary. relevant finding as above Active Medications Acetaminophen (Tylenol Tab) 650 mg PO Q6HR PRN PRN Reason: Mild Pain or Fever > 100.5 Hydrocodone Bitart/Acetaminophen ([place] 10) 1 each PO TID PRN PRN Reason: Pain Fentanyl (Duragesic 75mcg/Hr Patch) 1 patch TRANSDERM Q[facility]H [facility] Last Admin: 06/01/20 08:37 Dose: 1 patch Documented by: Hydrocortisone (Hydrocortisone 1% Cream) 1 applic TOPICAL HS PRN PRN Reason: FACE AND HAND RASH Hydromorphone HCl (Dilaudid) 0.5 mg IVP Q3HR PRN PRN Reason: Moderate Pain Last Admin: 06/01/20 14:41 Dose: 0.5 mg Documented by: Dextrose/Sodium Chloride (Dextrose 5%-1/2ns Iv Soln) 1,000 mls @ 125 mls/hr IV .Q8H [facility] Last Admin: 06/01/20 12:30 Dose: 125 mls/hr Documented by: Lidocaine/Prilocaine (Emla Cream 2.5%/2.5%) 1 applic TOPICAL DAILY PRN PRN Reason: PORT ACCESS Miscellaneous Information (Magnesium Per Protocol) 1 each MISCELLANE DAILY PRN; Protocol PRN Reason: Per Protocol Naloxone HCl (Narcan) 0.2 mg IV Q2M PRN PRN Reason: Opioid Reversal Nystatin (Mycostatin Oral Susp) 500,000 unit PO QID [facility] Last Admin: 06/01/20 16:13 Dose: Not Given Documented by: Ondansetron HCl (Zofran) 4 mg IVP Q8HR PRN PRN Reason: Nausea And Vomiting Pantoprazole Sodium (Protonix) 40 mg PO DAILY PRN PRN Reason: GI Upset Scopolamine (Transderm-Scop 1.5mg/72hr Patch) 1 patch TRANSDERM Q72H [facility] Last Admin: 05/31/20 22:42 Dose: 1 patch Documented by: Venlafaxine HCl (Effexor Xr) 37.5 mg PO DAILY [facility] Last Admin: 06/01/20 08:38 Dose: 37.5 mg Documented by: Physical examination: VITAL SIGNS: 98.1, 68, 17, 127/81, 99% room air GENERAL: Sitting up in bed, looks a bit better. EYES: Pupils equal. Conjunctiva normal. HEENT: External appearance of nose and ears normal, oral cavity grossly normal. NECK: JVD not raised; masses not palpable. HEART: First and second heart sounds are normal; no edema. LUNGS: Respiratory rate normal; clear to auscultation. ABDOMEN: Soft, decreased upper abdominal pain, no guarding or rigidity liver spleen not palpable, no masses palpable. PSYCH: [Alert and oriented x3; mood and affect anxious INVESTIGATIONS, reviewed in the clinical context: Potassium 3.4 creatinine 0.4 magnesium 0.7 albumin 2.7 White count 10.5 hemoglobin 12.5 platelets 326 potassium 4 creatinine 0.53 Magnesium 0.6 alkaline phosphatase 292 albumin 3.1 COVID 19 PCR-not detected Computed tomography scan of the abdomen and pelvis-multiple enlarged retroperitoneal lymph nodes mass in the right lower quadrant increased from last computed tomography scan, multiple hepatic metastasis Assessment: -This is a patient is had trouble significant chronic pain for last 6 months. The pain has not increased much. Now that is new associated nausea vomiting. Most likely secondary to chemotherapy there was had about 6 days ago. -Clinical dehydration -Colon cancer stage IV with metastatic disease to liver -GERD -Hiatal hernia -Depression otherwise specified -Mild protein calorie malnutrition decreased oral intake Severe hypomagnesemia Plan: -Seen by general surgery. Not any surgical intervention. Patient clinically looks a bit better. We'll continue with IV fluids today. Hopefully discharge in 24 hours.
[2020-06-01] MEDS ORDERED: CALCIUM GLUCONATE 1 GM in SODIUM CHLORIDE 0.9% 100 ML IVPB ONE (20:11)
[2020-06-01] MEDS: MAGNESIUM OXIDE 400 MG TAB PO SCH (21:36)
[2020-06-02] MEDS: HYDROmorphone 0.5 MG/0.5 ML SYRINGE IVP PRN (01:16)
[2020-06-02] MEDS: DEXTROSE 5%-0.45% NACL 1,000 ML IV SCH ×3 (04:23→22:29)
[2020-06-02] MEDS: MAGNESIUM OXIDE 400 MG TAB PO SCH ×3 (07:36→22:28)
[2020-06-02] MEDS: NYSTATIN 100,000 UNIT/ML SUSP 500,000 UNIT/5 ML CUP PO SCH ×4 (07:36→22:28)
[2020-06-02] MEDS: VENLAFAXINE HCL ER 37.5 MG CAP PO SCH (07:36)
[2020-06-02 09:17] LABS: ALT 10 U/L (4-34); AST 32 U/L (14-36); African American GFR (CKD) >90 (>60 ml/min/1.73 sqM); Albumin 2.9 g/dL (3.5-5.0); Alkaline Phosphatase 257 U/L (38-126); Anion Gap 7 mmol/L; Blood Urea Nitrogen <2 mg/dL (7-17); Calcium 6.9 mg/dL (8.4-10.2); Carbon Dioxide 29 mmol/L (22-30); Chloride 103 mmol/L (98-107); Glucose 112 mg/dL (74-99); Non-African American GFR(CKD) >90 (>60 ml/min/1.73 sqM); Potassium 3.2 mmol/L (3.5-5.1); Sodium 139 mmol/L (137-145); Total Bilirubin 0.8 mg/dL (0.2-1.3); Total Protein 5.8 g/dL (6.3-8.2)
[2020-06-02 09:34] LABS: Magnesium 0.8 mg/dL (1.6-2.3)
--- NOTE | 2020-06-02 11:32 | P.PN ---
Progress Note - Text Progress Note Date: 06/02/20 The patient remained stable. Her abdominal pain is unchanged. On exam her lesser stable. Abdomen soft with tenderness in the right side. Metastatic colon cancer. No surgical intervention is planned. Patient will be evaluated by oncology.
[2020-06-02] MEDS ORDERED: POTASSIUM CHLORIDE ER 20 MEQ TAB.ER PO STA (15:18)
--- NOTE | 2020-06-02 15:49 | P.PN ---
Subjective Progress Note Date: 06/02/20 Principal diagnosis: Abd pain, intractable vomiting, metastatic colon adenocarcinoma In follow-up today patient is stable, no vomiting, her abdominal pain moves around, no aggravating factors, pain meds help alleviated, she has had a bowel movement. Objective - Vital Signs Vital signs: Vital Signs Temp 98.4 F 06/02/20 13:00 Pulse 62 06/02/20 13:00 Resp 16 06/02/20 13:00 BP 144/79 06/02/20 13:00 Pulse Ox 98 06/02/20 13:00 Intake & Output 06/01/20 06/02/20 06/02/20 18:59 06:59 18:59 Intake Total 1000 2570 Balance 1000 2570 Weight 51.256 kg Intake: Intake, IV Titration 1000 1250 Amount Calcium Gluconate 1 gm In 1250 Sodium Chloride 0.9% 100 ml @ 100 mls/hr IVPB ONCE ONE Rx#:[id number] Dextrose 5%-0.45% NaCl 1, 1000 000 ml @ 125 mls/hr IV . Q8H [facility] Rx#:[id number] Oral 1320 Other: Voiding Method Toilet Toilet Toilet # Voids 2 3 - Constitutional General appearance: Present: cooperative, no acute distress, thin - EENT Eyes: Present: anicteric sclerae ENT: Present: hearing grossly normal - Respiratory Respiratory: bilateral: CTA - Cardiovascular Heart sounds: normal: S1, S2 - Peripheral edema leg Peripheral Edema: bilateral: None - Gastrointestinal General gastrointestinal: Present: decreased bowel sounds, soft. Absent: absent bowel sounds, distended, hepatomegaly, hyperactive bowel sounds, normal bowel sounds, organomegaly, rigid, scaphoid, splenomegaly, tenderness, umbilical césar ia, ventral hernia Localized gastrointestinal: tender: diffuse - Neurologic Neurologic: Present: CNII-XII intact - Musculoskeletal Musculoskeletal: Present: strength equal bilaterally - Psychiatric Psychiatric: Present: A&O x's 3, appropriate affect, intact judgment & insight - Labs CBC & Chem 7: 05/30/20 21:30 06/02/20 08:45 Labs: Abnormal Lab Results - Last 24 Hours (Table) 06/02/20 Range/Units 08:45 Potassium 3.2 L (3.5-5.1) mmol/L BUN <2 L (7-17) mg/dL Creatinine 0.36 L (0.52-1.04) mg/dL Glucose 112 H (74-99) mg/dL Calcium 6.9 L (8.4-10.2) mg/dL Magnesium 0.8 L* (1.6-2.3) mg/dL Alkaline Phosphatase 257 H (38-126) U/L Total Protein 5.8 L (6.3-8.2) g/dL Albumin 2.9 L (3.5-5.0) g/dL Microbiology - Last 24 Hours (Table) 05/30/20 21:30 Blood Culture - Preliminary Blood No Growth after 48 hours Assessment and Plan (1) Colon adenocarcinoma Narrative/Plan: CT reviewed. Evidence of progressive disease on current treatment. Hold treatment F/U Dr. Damon next week for options Pt verbalized understanding Current Visit: Yes Status: Chronic Priority: High Code(s): C18.9 - MALIGNANT NEOPLASM OF COLON, UNSPECIFIED SNOMED Code(s): 895768437 (2) Abdominal pain Narrative/Plan: Most likely r/t progressive disease. Have asked patient to use her [employer] inst ead of IV pain meds so that we can assure control when she is discharged Current Visit: Yes Status: Acute Priority: High Code(s): R10.9 - UNSPECIFIED ABDOMINAL PAIN SNOMED Code(s): 65292524 (3) Hypomagnesemia Narrative/Plan: Likely secondary to vectibix and frequent bowel movements. Replacement protocol. Current Visit: Yes Status: Acute Priority: High Code(s): E83.42 - HYPOMAGNESEMIA SNOMED Code(s): 068515959 (4) Vomiting Narrative/Plan: Pt stated antiemetics are helping. Cont Current Visit: Yes Status: Acute Priority: High Code(s): R11.10 - VOMITING, UNSPECIFIED SNOMED Code(s): 770281141 Plan: Reviewed prevention of narcotic induced constipation Reviewed s/s of bowel obstruction and perforation and s/s to seek emergent medical attention Encourage fluid intake All pt questions answered to her satisfaction
[2020-06-02] MEDS ORDERED: HYDROcodone/APAP 10-325MG 1 EACH TAB PO PRN (15:50)
[2020-06-02] MEDS: POTASSIUM CHLORIDE 20 MEQ in WATER FOR INJECTION 1 100ML.BAG IVPB SCH ×2 (16:04→18:06)
--- NOTE | 2020-06-02 22:09 | P.PN ---
Progress Note - Text Progress Note Date: 06/02/20 Chief Complaint: Abdominal pain History of presenting complaint: This is a pleasant [address] Eladio finnegan. Also follows with oncologist Dr. Damon. Patient was diagnosed with stage IV colon cancer in November 2019 with liver metastasis. Patient's been on chemotherapy. Last chemotherapy works about 5 days ago. Patient's had chronic abdominal pain rather constant for which she is on a Duragesic patch. For 5 days patient started having more nausea vomiting. No fever no chills. Last bowel movement was 2 days ago. Otherwise patient abdominal pain has been rather significantly constant for the last few months. Other stable medical conditions include depression, GERD. Patient appetite has been low. Admitted with chemotherapy-induced nausea vomiting. Abdominal pain is chronic. Today-feeling a bit better. Continues with abdominal pain. Eating about 50%. Review of systems: Was done for constitutional, cardiovascular, GI, pulmonary. relevant finding as above Active Medications Acetaminophen (Tylenol Tab) 650 mg PO Q6HR PRN PRN Reason: Mild Pain or Fever > 100.5 Hydrocodone Bitart/Acetaminophen ([place] 10) 1 each PO Q4H PRN PRN Reason: MODERATE Pain Fentanyl (Duragesic 75mcg/Hr Patch) 1 patch TRANSDERM Q72H [facility] Last Admin: 06/01/20 08:37 Dose: 1 patch Documented by: Hydrocortisone (Hydrocortisone 1% Cream) 1 applic TOPICAL HS PRN PRN Reason: FACE AND HAND RASH Hydromorphone HCl (Dilaudid) 0.5 mg IVP Q3HR PRN PRN Reason: SEVERE Pain Last Admin: 06/02/20 01:16 Dose: 0.5 mg Documented by: Dextrose/Sodium Chloride (Dextrose 5%-1/2ns Iv Soln) 1,000 mls @ 125 mls/hr IV .Q8H [facility] Last Admin: 06/02/20 11:28 Dose: Not Given Documented by: Lidocaine/Prilocaine (Emla Cream 2.5%/2.5%) 1 applic TOPICAL DAILY PRN PRN Reason: PORT ACCESS Magnesium Oxide (Mag-Ox) 400 mg PO TID [facility] Last Admin: 06/02/20 16:11 Dose: 400 mg Documented by: Miscellaneous Information (Magnesium Per Protocol) 1 each MISCELLANE DAILY PRN; Protocol PRN Reason: Per Protocol Naloxone HCl (Narcan) 0.2 mg IV Q2M PRN PRN Reason: Opioid Reversal Nystatin (Mycostatin Oral Susp) 500,000 unit PO QID [facility] Last Admin: 06/02/20 16:11 Dose: 500,000 unit Documented by: Pantoprazole Sodium (Protonix) 40 mg PO DAILY PRN PRN Reason: GI Upset Last Admin: 06/02/20 07:45 Dose: 40 mg Documented by: Scopolamine (Transderm-Scop 1.5mg/72hr Patch) 1 patch TRANSDERM Q72H [facility] Last Admin: 05/31/20 22:42 Dose: 1 patch Documented by: Venlafaxine HCl (Effexor Xr) 37.5 mg PO DAILY [facility] Last Admin: 06/02/20 07:36 Dose: 37.5 mg Documented by: Physical examination: VITAL SIGNS: 98.4, 62, 16, 144/79, 98% room air GENERAL: Sitting up, improved EYES: Pupils equal. Conjunctiva normal. HEENT: External appearance of nose and ears normal, oral cavity grossly normal. NECK: JVD not raised; masses not palpable. HEART: First and second heart sounds are normal; no edema. LUNGS: Respiratory rate normal; clear to auscultation. ABDOMEN: Soft, decreased upper abdominal pain, no guarding or rigidity liver spleen not palpable, no masses palpable. PSYCH: [Alert and oriented x3; mood and affect anxious INVESTIGATIONS, reviewed in the clinical context: In 3.2 creatinine 0.36 and magnesium 0.8 albumin 2.9 Previous testing Potassium 3.4 creatinine 0.4 magnesium 0.7 albumin 2.7 White count 10.5 hemoglobin 12.5 platelets 326 potassium 4 creatinine 0.53 Magnesium 0.6 alkaline phosphatase 292 albumin 3.1 COVID 19 PCR-not detected Computed tomography scan of the abdomen and pelvis-multiple enlarged retroperitoneal lymph nodes mass in the right lower quadrant increased from last computed tomography scan, multiple hepatic metastasis Assessment: -Chemotherapy-induced severe nausea vomiting improving -Clinical dehydration -Colon cancer stage IV with metastatic disease to liver -GERD -Hiatal hernia -Depression otherwise specified -Mild protein calorie malnutrition decreased oral intake Severe hypomagnesemia Plan: -Replace electrolytes. Feeling better. Has been up to the bathroom. Patient preferred to go home tomorrow.
[2020-06-03] MEDS ORDERED: Potassium Replacement Protocol 1 EACH MISC MISCELLANE PRN (04:16)
[2020-06-03] MEDS: DEXTROSE 5%-0.45% NACL 1,000 ML IV SCH ×2 (05:22→06:40)
[2020-06-03 07:59] LABS: African American GFR (CKD) >90 (>60 ml/min/1.73 sqM); Anion Gap 6 mmol/L; Blood Urea Nitrogen 4 mg/dL (7-17); Calcium 6.5 mg/dL (8.4-10.2); Carbon Dioxide 29 mmol/L (22-30); Chloride 104 mmol/L (98-107); Glucose 106 mg/dL (74-99); Non-African American GFR(CKD) >90 (>60 ml/min/1.73 sqM); Potassium 4.1 mmol/L (3.5-5.1); Sodium 139 mmol/L (137-145)
[2020-06-03 08:08] LABS: Magnesium 0.6 mg/dL (1.6-2.3)
[2020-06-03] MEDS ORDERED: Magnesium Replacement Protocol 1 EACH MISC MISCELLANE PRN (08:30)
[2020-06-03] MEDS: MAGNESIUM OXIDE 400 MG TAB PO SCH ×2 (08:34→15:11)
[2020-06-03] MEDS: VENLAFAXINE HCL ER 37.5 MG CAP PO SCH (08:34)
[2020-06-03] MEDS: NYSTATIN 100,000 UNIT/ML SUSP 500,000 UNIT/5 ML CUP PO SCH ×2 (08:34→10:49)
[2020-06-03] MEDS: MAGNESIUM SULFATE-D5W PMX 1 GM in DEXTROSE/WATER 1 100ML.BAG IVPB SCH ×4 (09:06→15:05)
[2020-06-03 12:55] VITALS: BP 135/83; PULSE 66; RESP 17; TEMP 98.4
--- NOTE | 2020-06-03 13:20 | P.PN ---
Subjective Progress Note Date: 06/03/20 CHIEF COMPLAINT: Abdominal pain HISTORY OF PRESENT ILLNESS: The patient is a 61-year-old female with metastatic colon cancer and chronic abdominal pain. She reports she is able to tolerate regular diet including having bowel movements. She takes chronic pains due to her abdominal pain. She is aware of her metastatic disease. ROS: No reports of nausea and vomiting. No fevers or chills. No new chest pain. No productive sputum PHYSICAL EXAM: VITAL SIGNS: Reviewed. Afebrile CONSTITUTIONAL: Well developed and in no acute distress. EYES: Conjuctivae without sclera icterus. Extraocular movements grossly intact. HEAD, EARS, NOSE, THROAT: Moist buccal mucosa. Head is atraumatic, normoce phalic. Hears conversational speech. No nasal drainage. NECK: Supple. No thyroidomegaly. RESPIRATORY: Non-labored respirations and equal bilateral excursions. CARDIOVASCULAR: Palpable 2+ radial pulses. Regular rate. Regular rhythm. ABDOMEN: Soft. Nondistended. No peritonitis. MUSCULOSKELETAL: No gross deformity of the lower extremities noted. No clubbing. No cyanosis. SKIN: Good skin turgor. Well perfused. NEUROLOGIC: Cranial nerves II through XII grossly intact. No focal or lateral izing signs. PSYCH: Appropriate affect. Alert and oriented to person, place and time. CLINICAL LABS: White blood cell count normal on admission 10.5. Magnesium low 0.6 STUDIES: CT of the abdomen pelvis independent reviewed demonstrated large cavitary lesion along the right lower liver consistent with metastatic disease. Small bowel was then normal caliber without features of bowel obstruction ASSESSMENT: 1. Chronic abdominal pain PLAN: 1. She is tolerating diet and having bowel movements. Secondary to her metastatic disease, no acute surgical intervention. 2. Diet as tolerated Objective - Vital Signs Vital signs: Vital Signs Temp 98.4 F 06/03/20 12:55 Pulse 66 06/03/20 12:55 Resp 17 06/03/20 12:55 BP 135/83 06/03/20 12:55 Pulse Ox 97 06/03/20 12:55 Intake & Output 06/02/20 06/03/20 06/03/20 18:59 06:59 18:59 Intake Total 2810 1000 Balance 2810 1000 Intake: Intake, IV Titration 1250 1000 Amount Calcium Gluconate 1 gm In 1250 Sodium Chloride 0.9% 100 ml @ 100 mls/hr IVPB ONCE ONE Rx#:[id number] Dextrose 5%-0.45% NaCl 1, 1000 000 ml @ 125 mls/hr IV . [facility] Rx#:[id number] Oral 1560 Other: Voiding Method Toilet Toilet Toilet # Voids 3 2 2 - Labs CBC & Chem 7: 05/30/20 21:30 06/03/20 06:58 Labs: Abnormal Lab Results - Last 24 Hours (Table) 06/03/20 Range/Units 06:58 BUN 4 L (7-17) mg/dL Creatinine 0.50 L (0.52-1.04) mg/dL Glucose 106 H (74-99) mg/dL Calcium 6.5 L (8.4-10.2) mg/dL Magnesium 0.6 L* (1.6-2.3) mg/dL Microbiology - Last 24 Hours (Table) 05/30/20 21:30 Blood Culture - Preliminary Blood No Growth after 72 hours Assessment and Plan (1) Liver metastases Current Visit: Yes Status: Acute Code(s): C78.7 - SECONDARY MALIG NEOPLASM OF LIVER AND INTRAHEPATIC BILE DUCT SNOMED Code(s): 56076904 (2) Abdominal pain Current Visit: Yes Status: Acute Priority: High Code(s): R10.9 - UNSPECIFIED ABDOMINAL PAIN SNOMED Code(s): 04139849 (3) Hypomagnesemia Current Visit: Yes Status: Acute Priority: High Code(s): E83.42 - HYPOMAGNESEMIA SNOMED Code(s): 190758082 (4) Colon adenocarcinoma Current Visit: Yes Status: Chronic Priority: High Code(s): C18.9 - MALIG NANT NEOPLASM OF COLON, UNSPECIFIED SNOMED Code(s): 345431911
--- NOTE | 2020-06-04 18:29 | P.DS ---
Providers Date of admission: 05/30/20 23:19 Expected date of discharge: 06/04/20 Attending physician: Joselo Burrows Consults: 05/30/20 23:37 Consult Physician Routine Consulting Provider: Jose Damon Consult Reason/Comments: Abd pain; Vomiting; Hypomagnesemia; enlarging tumor Do you want consulting provider notified?: Yes 05/31/20 22:28 Consult Physician Routine Consulting Provider: Pelon Washington Consult Reason/Comments: Abdominal pain Do you want consulting provider notified?: Yes Primary care physician: [facility] Course: Chief Complaint: Abdominal pain History of presenting complaint: This is a pleasant [address] Eladio hughes. Also follows with oncologist Dr. Damon. Patient was diagnosed with stage IV colon cancer in November 2019 with liver metastasis. Patient's been on chemotherapy. Last chemotherapy works about 5 days ago. Patient's had chronic abdominal pain rather constant for which she is on a Duragesic patch. For 5 days patient started having more nausea vomiting. No fever no chills. Last bowel movement was 2 days ago. Otherwise patient abdominal pain has been rather significantly constant for the last few months. Other stable medical conditions include depression, GERD. Patient appetite has been low. Admitted with chemotherapy-induced nausea vomiting. Hypokalemia and hypomagnesemia. Abdominal pain is chronic. Responded well to antiemetics IV fluids. Being discharge and magnesium supplement. Today-Doing well. Starting a diet. Up and about. Care was discussed. Physical examination: VITAL SIGNS: 98.4, 66, 17, 135/83, 97% room air GENERAL: Sitting up, improved EYES: Pupils equal. Conjunctiva normal. HEENT: External appearance of nose and ears normal, oral cavity grossly normal. NECK: JVD not raised; masses not palpable. HEART: First and second heart sounds are normal; no edema. LUNGS: Respiratory rate normal; clear to auscultation. ABDOMEN: Soft, minimal tenderness, no guarding or rigidity liver spleen not palpable, no masses palpable. PSYCH: [Alert and oriented x3; mood and affect anxious INVESTIGATIONS, reviewed in the clinical context: Potassium 4.1 creatinine 0.5 magnesium 0.6 Previous testing Potassium 3.4 creatinine 0.4 magnesium 0.7 albumin 2.7 White count 10.5 hemoglobin 12.5 platelets 326 potassium 4 creatinine 0.53 Magnesium 0.6 alkaline phosphatase 292 albumin 3.1 COVID 19 PCR-not detected Computed tomography scan of the abdomen and pelvis-multiple enlarged retroperitoneal lymph nodes mass in the right lower quadrant increased from last computed tomography scan, multiple hepatic metastasis Assessment: -Chemotherapy-induced severe nausea vomiting improving -Clinical dehydration -Colon cancer stage IV with metastatic disease to liver -GERD -Hiatal hernia -Depression otherwise specified -Mild protein calorie malnutrition decreased oral intake -hypomagnesemia Disposition: Home BMP magnesium in 3 days Patient Condition at Discharge: Stable Plan - Discharge Summary Discharge Rx Participant: No New Discharge Prescriptions: New Magnesium Oxide [Mag-Ox] 400 mg PO TID #60 tab Calcium Carbonate [Tums] 500 mg PO BID #60 chewable Continue fentaNYL 75MCG/HR PATCH [Duragesic 75MCG/HR] 75 mcg TRANSDERM Q72H Hydrocortisone Cream [Hydrocortisone 1% Cream] 1 applic TOPICAL HS PRN PRN Reason: FACE AND HAND RASH Venlafaxine HCl ER [Effexor XR] 37.5 mg PO DAILY Pantoprazole [Protonix] 40 mg PO DAILY PRN PRN Reason: Gi Upset Ondansetron Odt [Zofran ODT] 8 mg PO TID PRN PRN Reason: Nausea And Vomiting Hydrocodone/Acetaminophen [[place]man 10-325] 1 tab PO TID PRN PRN Reason: Pain Lidocaine-Prilocaine Cream [Emla Cream 2.5%/2.5%] 1 applic TOPICAL DAILY PRN PRN Reason: PORT ACCESS Discontinued Doxycycline Monohydrate [Monodox] 100 mg PO BID Discharge Medication List fentaNYL 75MCG/HR PATCH [Duragesic 75MCG/HR] 75 mcg TRANSDERM Q72H 04/08/20 [History] Hydrocodone/Acetaminophen [[place] 10-325] 1 tab PO TID PRN 05/30/20 [History] Hydrocortisone Cream [Hydrocortisone 1% Cream] 1 applic TOPICAL HS PRN 05/30/20 [History] Lidocaine-Prilocaine Cream [Emla Cream 2.5%/2.5%] 1 applic TOPICAL DAILY PRN 05/30/20 [History] Ondansetron Odt [Zofran ODT] 8 mg PO TID PRN 05/30/20 [History] Pantoprazole [Protonix] 40 mg PO DAILY PRN 05/30/20 [History] Venlafaxine HCl ER [Effexor XR] 37.5 mg PO DAILY 05/30/20 [History] Calcium Carbonate [Tums] 500 mg PO BID #60 chewable 06/03/20 [Rx] Magnesium Oxide [Mag-Ox] 400 mg PO TID #60 tab 06/03/20 [Rx] Follow up Appointment(s)/Referral(s): Eladio Hughes MD [Primary Care Provider] - 1-2 days (office closed. please call to set up appt.) Jose Damon MD [STAFF PHYSICIAN] - 06/13/20 10:45 am Patient Instructions/Handouts: Magnesium Oxide (By mouth), Antacid, Calcium and Magnesium (By mouth), Hypomagnesemia (DC) Activity/Diet/Wound Care/Special Instructions: Hold current chemo cmp/magnesium - 3 days Discharge Disposition: HOME SELF-CARE
== END 2020-06-03 16:51 | disposition home or self-care (01) | DRG 392 ==
LOC: EC 17:53 → 5NMEDONC 23:19
PROVIDERS: ADMIT Hospitalist; ATTEND Hospitalist
DX: R11.2 Nausea with vomiting, unspecified (principal); C18.9 Malignant neoplasm of colon, unspecified; C78.7 Secondary malignant neoplasm of liver and intrahepatic bile duct; E44.1 Mild protein-calorie malnutrition; T45.1X5A Adverse effect of antineoplastic and immunosuppressive drugs, initial encounter; E83.42 Hypomagnesemia; E86.0 Dehydration; E87.6 Hypokalemia; F32.9 Major depressive disorder, single episode, unspecified; Z11.59 Encounter for screening for other viral diseases; G89.29 Other chronic pain; K21.9 Gastro-esophageal reflux disease without esophagitis; K44.9 Diaphragmatic hernia without obstruction or gangrene; M54.5 Low back pain; G89.3 Neoplasm related pain (acute) (chronic); Z79.899 Other long term (current) drug therapy; Z88.0 Allergy status to penicillin; Z90.49 Acquired absence of other specified parts of digestive tract; Z98.51 Tubal ligation status; Z82.5 Family history of asthma and other chronic lower respiratory diseases; Z82.0 Family history of epilepsy and other diseases of the nervous system
CPT/HCPCS: 36415; 74177; 80048; 80053; 81001; 83605; 83690; 83735; 84484; 85025; 87040; 93005; 96361; 96365; 96366; 96375; 96376; 99285